=== PATIENT | female | born 1995 | race Hispanic/Latino ===

== ENCOUNTER → 2018-11-18 | Outpatient (CLI) | payer OTHER ==
--- NOTE | 2018-11-18 13:29 | REP ---
Chest x-ray: Two views. History: Persistent cough for 3 weeks. . Comparison study: No comparison study. . Findings: The lungs are well inflated and free of infiltrate. The pleural angles are sharp. The heart size is normal. Pulmonary vasculature is not increased. No significant bony abnormality is seen. Impression: Negative chest x-ray. Electronically Signed by Mode Miguel MD 11/18/2018 01:20 P
== END ==
LOC: M LRY 12:50
PROVIDERS: ATTEND Nurse Practitioner Family
DX: R05 Cough (principal)

== ENCOUNTER → 2018-11-18 | Outpatient (REF) | payer OTHER | LOC: M SFHCLERA 18:27 | PROVIDERS: ATTEND Nurse Practitioner Family | DX: Z91.09 Other allergy status, other than to drugs and biological substances (principal) ==

== ENCOUNTER 2019-01-05 12:31 | Day surgery (SDC) | payer OTHER ==
[~2019-01-05] VITALS: Ht 160 cm; Wt 92.1 kg
[2019-01-05] MEDS ORDERED: NS 1,000 ML IV ONE (12:45)
--- NOTE | 2019-01-05 15:36 | ROOR ---
Patient Name: Sally Gaming Procedure Date: 01/05/2019 3:24 PM Date of : 1995 Age: 23 Room: [facility] Gender: Female Note Status: Finalized Procedure: Upper GI endoscopy Indications: Heartburn Providers: Kevin XIE MD Referring MD: JUS LUU MD Requesting Provider: Medicines: Monitored Anesthesia Care Complications: No immediate complications. Procedure: Pre-Anesthesia Assessment: - The heart rate, respiratory rate, oxygen saturations, blood pressure, adequacy of pulmonary ventilation, and response to care were monitored throughout the procedure. The Endoscope was introduced through the mouth, and advanced to the second part of duodenum. The upper GI endoscopy was accomplished without difficulty. The patient tolerated the procedure well. Findings: Diffuse mild inflammation characterized by granularity was found in the entire examined stomach. Biopsies were taken with a cold forceps for Helicobacter pylori testing. The exam of the stomach was otherwise normal. The examined esophagus was normal. The examined duodenum was normal. Impression: - Mild diffuse gastritis/mucosal atrophy. Biopsied. - Normal esophagus. - Normal examined duodenum. Recommendation: - Telephone endoscopist for pathology results in 2 weeks. - Continue present medications. Kevin Xie MD Kevin XIE MD 01/05/2019 3:36:38 PM Electronically signed by Kevin XIE MD Number of Addenda: 0 Note Initiated On: 01/05/2019 3:24 PM Estimated Blood Loss: Estimated blood loss: none.
[2019-01-05] MEDS ORDERED: LIDOCAINE 2% INJ 100 MG/5 ML SDV (FOR ANES.) As Ordered ONE (15:44)
[2019-01-05] MEDS ORDERED: PROPOFOL 200 MG/20 ML VIAL As Ordered ONE (15:44)
[2019-01-05 15:55] VITALS: BP 125/71
== END 2019-01-05 16:25 | disposition home or self-care (01) ==
LOC: M OPP 12:31
PROVIDERS: ATTEND Internal Medicine Gastroenterology
DX: K29.50 Unspecified chronic gastritis without bleeding (principal); B96.81 Helicobacter pylori [H. pylori] as the cause of diseases classified elsewhere; R12 Heartburn

== ENCOUNTER 2019-03-28 22:58 | Emergency (ER) | payer OTHER ==
[~2019-03-28] VITALS: Ht 160 cm; Wt 95.6 kg
[2019-03-28] MEDS ORDERED: CLAR10TA7 PO (23:06)
[2019-03-28] MEDS ORDERED: ERYT1OIN26 OP (23:06)
[2019-03-29] MEDS ORDERED: AMOX500C PO (00:09)
[2019-03-29] MEDS ORDERED: AMOXICILLIN 500 MG CAP PO ONE (00:15)
[2019-03-29 00:33] VITALS: BP 124/66
== END 2019-03-29 00:34 | disposition home or self-care (01) ==
LOC: M ED 22:58
DX: H66.91 Otitis media, unspecified, right ear (principal); Z79.899 Other long term (current) drug therapy; Z79.2 Long term (current) use of antibiotics